=== PATIENT | female | born 1980 | race Two or more races ===

== ENCOUNTER 2019-06-18 02:29 | Emergency (ER) | payer MEDICAID ==
[~2019-06-18] VITALS: Ht 162.6 cm; Wt 56.2 kg
--- NOTE | 2019-06-18 02:42 | NUR ---
BIBSELF FROM HOME WITH . TO ER BED 7. AAOX4. NAD NOTED, BREATHING EVEN AND UNLABORED. BROUGHT IN TO ER BY WHEELCHAIR. CAME IN FOR R GREAT TOE AND R FOOT PAIN S/P TV FALLING ON HER FOOT. NOTED ABRASSION ON R GREA TOE WITH REDNESS. PAIN 5/10 THROBBING PAIN. MD AT BED SIDE. AWAITING ORDERS
[2019-06-18 02:43] VITALS: BP 114/82
--- NOTE | 2019-06-18 02:47 | NUR ---
XRAY AT BEDSIDE
--- NOTE | 2019-06-18 03:24 | NUR ---
Patient discharged to home in stable condition. Written and verbal after care instructions given. Patient verbalizes understanding of instruction. Pt wheeled out to car on wheelchair.
== END 2019-06-18 03:26 | disposition home or self-care (01) ==
LOC: ER 02:29
DX: S90.111A Contusion of right great toe without damage to nail, initial encounter (principal); W18.39XA Other fall on same level, initial encounter; Y93.89 Activity, other specified; Y92.89 Other specified places as the place of occurrence of the external cause; Y99.8 Other external cause status
CPT/HCPCS: 73630-TC